=== PATIENT | female | born 2000 | race Hispanic/Latino ===

== ENCOUNTER 2021-12-26 14:22 | Emergency (ER) | payer OTHER, SELFPAY ==
[2021-12-26 14:32] VITALS: BP 120/70; PULSE 93; RESP 16; TEMP 37.3; O2SAT 99
--- NOTE | 2021-12-26 14:58 | ED.URI ---
HPI - URI/Sore Throat General Chief Complaint: Upper Respiratory Infection Stated Complaint: headache, ear pain Time Seen by Provider: 12/26/21 14:58 Source: patient and RN notes reviewed Mode of arrival: ambulatory Limitations: no limitations History of Present Illness HPI Narrative: 21-year-old female presented for complaints of headache, right ear pain and fatigue with 1 episode of vomiting today. Symptom onset 3 days. She denies sick contacts. She has not taken anything for symptoms. She denies shortness of breath, cough, wheezing, fevers or chills. MD elicited complaint: cough Related Data Home Medications Medication Instructions Recorded Confirmed No Home Medications 12/26/21 12/26/21 Allergies Allergy/AdvReac Type Severity Reaction Status Date / Time No Known Allergies Allergy Mild Verified 12/26/21 14:36 Review of Systems Review of Systems: CONSTITUTIONAL: Denies malaise, chills, sweats, fever EYES: Denies visual changes, redness, or discharge ENT: Reports rhinorrhea, congestion, sinus pain, otalgia CARDIOVASCULAR: Denies chest pain, palpitations, edema RESPIRATORY: Denies dyspnea GASTROINTESTINAL: Denies abdominal pain, nausea, vomiting, diarrhea SKIN: Denies rash or itching MUSCULOSKELETAL: Endorses myalgia Exam Narrative: GENERAL: Ill-appearing, nontoxic EYES: conjunctivae clear ENT: Mucous membranes moist. TMs pearly suarez with dull light reflex bilaterally; excess cerumen, Oropharynx erythematous without lesions or exudate, no drooling, no hoarseness, no trismus, uvula midline. NECK: Supple. No lymphadenopathy CHEST: Clear to auscultation, breath sounds equal. HEART: Regular rate and rhythm. No murmur heard. SKIN: Warm, dry, no rash. Course Course Emergency Course: Patient is aware of diagnosis, understands and agrees to treatment plan. Anticipatory guidance given. Patient agrees to follow-up as directed and is aware of reasons to seek care at the emergency department. Portions of this record may have been created with voice recognition software Level of Care: Express Care Visit Vital Signs Vital signs: Vital Signs Temperature 99.2 F 12/26/21 14:32 Pulse Rate 93 12/26/21 14:32 Respiratory Rate 16 12/26/21 14:32 Blood Pressure 120/70 12/26/21 14:32 Pulse Oximetry 99 12/26/21 14:32 Oxygen Delivery Room Air 12/26/21 14:32 Temperature 99.2 F 12/26/21 14:32 Pulse Rate 93 12/26/21 14:32 Respiratory Rate 16 12/26/21 14:32 Blood Pressure 120/70 12/26/21 14:32 Pulse Oximetry 99 12/26/21 14:32 Oxygen Delivery Room Air 12/26/21 14:32 reviewed MDM - URI/Sore Throat MDM Narrative Medical decision making narrative: Flu positive, result reviewed with patient. Advised supportive measures and signs/symptoms to go to the ER. Pt is appropriate for outpt treatment and f/u. Differential Diagnosis Differential diagnosis: Likely upper respiratory infection, otitis media, sinusitis, viral infection and influenza Lab Data Labs: Lab Results 12/26/21 Range/Units 14:45 POC SARS CoV-2 Ag Negative (Negative) Influenza A Screen Positive Reference Range: Negative Influenza B Screen Negative Reference Range: Negative Discharge Plan Discharge Clinical Impression: Influenza Patient Disposition: Home, Self-Care Condition: Stable Instructions: Influenza (ED) Additional Instructions: Infulenza positive You should avoid crowds until you are fever free for 24 hours without the use of fever reducing medications, or the symptoms are improved Rest. Drink plenty of fluids. Tylenol 1000mg every 8 hours as needed for pain/fever Recommend Flonase spray and Zyrtec (or Claritin/Tiffanie) for sinus pressure/congestion over the counter Cough syrup may cause drowsiness; avoid driving or take it at night time. Follow u
== END 2021-12-26 15:08 | disposition home or self-care (01) ==
PROVIDERS: Emergency Provider Nurse Practitioner Family
DX: J10.1 Influenza due to other identified influenza virus with other respiratory manifestations (principal); Z20.822 Contact with and (suspected) exposure to COVID-19
CPT/HCPCS: 87426; 87804; 99213; C9803; G0463